=== PATIENT | male | born 1985 | race African-American/Black ===

== ENCOUNTER 2025-04-14 10:41 | Emergency (ER) | payer BC, SELFPAY ==
--- NOTE | 2025-04-14 10:45 | ECG_ITS ---
Test Date: 2025-04-14 10:29:22 Measurements Intervals [place] Rate: 107 P: 76 MA: 170 QRS: 62 QRSD: 102 T: 58 QT: 326 QTc: 436 Interpretive Statements SINUS TACHYCARDIA INCOMPLETE RIGHT BUNDLE BRANCH BLOCK BASELINE ARTIFACT- I, II, III, AVR, AVL, AVF, V1-V6 ABNORMAL ECG No previous ECG available for comparison Electronically Signed On 04-14-2025 11:54:53 [employer]AKER [employer]INT by Zachary Banuelos D.O.
--- NOTE | 2025-04-14 10:46 | ED_ITS ---
HPI - Chest Pain General Chief Complaint: Chest Pain Stated Complaint: heart beating fast/left arm feel numb Time Seen by Provider: 04/14/25 10:45 Source: patient and RN notes reviewed Mode of arrival: ambulatory Limitations: no limitations History of Present Illness HPI narrative: 40-year-old male patient presents to the [facility] complaining of chest pain, palpitations, and left arm pain that started approximately 30 minutes ago. Patient says approximately 2-1/2 hours ago he took 2 250 mg caffeine tablets and then went to work. Patient then started developing a dullness in his chest and left arm pain/numbness. Patient denies any difficulty breathing, shortness of breath, nausea, vomiting, jaw pain, blurry vision, headaches, fevers, eczema chills, upper respiratory symptoms, or any other symptoms. Patient reports a history of hypertension, does not take any medications. Patient is on nonsmoker. Patient denies any other significant past medical history. Staff called EMS prior to evaluation. Related Data Home Medications ?Medication ?Instructions ?Recorded ?Confirmed ?Last Taken ?Type albuterol sulfate 90 mcg/actuation inhalation 04/14/25 Unknown History aerosol inhaler ciclesonide 80 mcg/actuation inhalation 04/14/25 Unkn own History aerosol inhaler (Alvesco) Allergies Allergy/AdvReac Type Severity Reaction Status Date / Time NSAIDS (Non-Steroidal Allergy Severe Anaphylaxis Verified 04/14/25 11:12 Anti-Inflamma Review of Systems Review of Systems: CONSTITUTIONAL: Denies fever, body aches, chills, or sweats. EYES: Denies visual changes, blurry vision, double vision, redness, or discharge. ENT: Denies rhinorrhea, congestion, sore throat, or otalgia. CARDIOVASCULAR: Positive chest pain, palpitation and left arm numbness. Negative for dizziness, lightheadedness, or edema. RESPIRATORY: Denies cough or dyspnea. GASTROINTESTINAL: Denies abdominal pain, nausea, vomiting, or diarrhea. GENITOURINARY: Denies dysuria or hematuria. SKIN: Denies rash or itching. MUSCULOSKELETAL: Denies back pain, joint pain, or myalgia. NEUROLOGIC: Denies headache, loss of consciousness, seizures, numbness, or weakness. PSYCHIATRIC: Denies anxiety or depression. All other systems reviewed are negative, except as documented in HPI. PMFSH Comments At the time of my signature, I reviewed and agree with the nursing past medical, surgical, social, and family history. There is no relevant family history pertinent to the patient complaint. Exam Narrative: GENERAL: This is a well-nourished, well-developed adult, in no apparent distress. They are non ill-appearing, nontoxic appearing. Patient appears anxious. HEAD: normocephalic, atraumatic. EYES: Sclera clear/white. Conjunctiva normal. Vision is grossly intact. Extraocular movements intact EARS: External ears normal, Hearing grossly intact. NOSE: External nose normal THROAT: Mucous membranes moist, NECK: Neck supple, non-tender without lymphadenopathy, masses or thyromegaly. CARDIOVASCULAR: Tachycardic rate and rhythm without murmurs, gallops, or rubs. RESPIRATORY: Clear to auscultation. Breath sounds equal bilaterally. No wheezes, rales, or rhonchi. SKIN: warm, Dry, intact with no suspicious lesions or rash, good texture and turgor. NEURO: awake, alert, and oriented to person, place and time. There were no obvious focal neurologic abnormalities. EXTREMITIES: No joint tenderness, effusion, or edema noted. BACK: Nontender without deformity. Course Course Level of Care: Express Care Visit Vital Signs Vital signs: Vital Signs Oxygen Delivery Room Air 04/14/25 10:41 Temperature 97.9 F 04/14/25 10:53 Pulse Rate 110 H 04/14/25 10:53 Respiratory Rate 20 04/14/25 10:53 Blood Pressure 155/107 H 04/14/25 10:53 Pulse Oximetry 99 04/14/25 10:53 Oxygen Delivery Room Air 04/14/25 10:53 [facility] Narrative Medical decision making narrative: EMS arrived prior to evaluation because patient was having chest pain. Patient took to caffeine tablets dose to 250 mg apiece, totaling 5 her mg of caffeine. EKG is a sinus tachycardia nonspecific ST changes, no reciprocal changes, it is borderline. Patient's symptoms have improved while he has been here, her rate has decreased. Patient refused to go by ambulance to the hospital after speaking with paramedics. Given patient's symptoms, it is recommend the patient seek a higher level care and proceed immediately to the emergency department. Patient does not want to go to the ER after talking with him, patient's symptoms likely related to the caffeine use today, informed patient I cannot exclude a cardiac event. Patient does have a history of hypertension, but no identifiable other risk factors. Patient would benefit from further evaluation and management and monitoring of his symptoms. Patient informed he has had incomplete cardiac workup would benefit from blood work and further evaluation his symptoms. Patient adamantly does not want to go to the hospital. Patient has chosen to refuse further care. Risks of an incomplete evaluation and treatment were discussed with the patient, including but not limited to potential for , worsening of condition, or permanent disability. Patient verbalized understanding of these risks, but still desires to refuse further care. Patient recommended to follow up with PCP in the next possible interval. Specifically, patient was told they can return to the ED at any time to resume care. Differential Diagnosis Differential Diagnosis: Caffeine overdose, side effects from caffeine, ACS, stable angina, unstable angina ECG Data EKG #1: Attestation: I personally reviewed and interpreted this ECG as follows: ECG completion date: 04/14/25 ECG completion time: 10:29 Prior ECG tracings: not available for review tachycardia, sinus rhythm, non-specific ST changes, normal QRS, RBBB (Incomplete) and normal QT Critical Care Time Critical Care Time Critical Care Time: No Discharge Plan Discharge Clinical Impression: Chest pain Qualifiers: Chest pain type: unspecified Qualified Code(s): R07.9 - Chest pain, unspecified Adverse effect of caffeine Qualifiers: Encounter type: initial encounter Qualified Code(s): T43.615A - Adverse effect of caffeine, initial encounter Patient Disposition: Left Against Medical Advice Condition: Stable Patient Language: Micronesian Prescriptions: No Action albuterol sulfate 90 mcg/actuation HFA aerosol inhaler INHALATION Alvesco 80 mcg/actuation HFA aerosol inhaler INHALATION Follow-up/Referrals: UNKNOWN,DOCTOR [Primary Care Provider] Time of Disposition: 10:46
[2025-04-14 10:53] VITALS: BP 155/107; PULSE 110; RESP 20; TEMP 36.6; O2SAT 99
[2025-04-14 10:57] VITALS: BP 155/107
--- NOTE | 2025-04-14 12:52 | PC.NURSE ---
upon pt arrival in waiting area ems was called. ems arrived 1028. ems left 1032. pt declined ems transport.
== END 2025-04-14 10:57 | disposition left against medical advice (07) ==
LOC: EXPCOLL 10:47
DX: R07.9 Chest pain, unspecified (principal); T43.615A Adverse effect of caffeine, initial encounter
CPT/HCPCS: 93005; 99203; G0463

== ENCOUNTER 2025-04-14 14:57 | Emergency (ER) | payer BC, SELFPAY ==
[2025-04-14] VITALS (18 sets, daily range): BP systolic 128–178; BP diastolic 70–130; PULSE 84–112; RESP 12–26; TEMP 36.4; O2SAT 98–100
--- NOTE | ~2025-04-14 | XR_ITS ---
EXAMINATION: XR chest 2V, 04/14/2025 15:21 GENERAL DISTILLERY WORKER HISTORY: chest pain COMPARISON: No comparisons available. Technique: 2 views obtained. Findings: The lungs are clear, no effusion. No pneumothorax. Heart is normal size. Mediastinal and hilar contours are within normal limits. Bony thorax no acute abnormality. Impression: No acute cardiopulmonary abnormality. Reviewed, dictated and finalized at location P. RAL DISTILLERY WORKER Impression: No acute cardiopulmonary abnormality.
--- NOTE | 2025-04-14 15:11 | ECG_ITS ---
Test Date: 2025-04-14 15:03:36 Measurements Intervals [place] Rate: 95 P: 67 [place]: 173 QRS: 63 QRSD: 108 T: 52 QT: 361 QTc: 454 Interpretive Statements SINUS RHYTHM POSSIBLE LEFT ATRIAL ENLARGEMENT INCOMPLETE RIGHT BUNDLE BRANCH BLOCK BASELINE ARTIFACT- V2 BORDERLINE ECG Compared to ECG 04/14/2025 10:29:22 HEART RATE HAS DECREASED Electronically Signed On 04-14-2025 15:37:46 BUFFET ATTENDANT by Zachary Banuelos D.O.
[2025-04-14 15:21] LABS: Hematocrit 45.5 % (42.0-52.0); Hemoglobin 15.8 g/dL (14.0-18.0); Immature Granulocyte Percent A 0.2 % (0-0.5); Lymphocytes Absolute Auto 2.46 K/mm3 (0.9-3.2); Mean Corpuscular HGB Conc 34.7 g/dl (32-36); Mean Corpuscular Hemoglobin 29.6 pg (26-34); Mean Corpuscular Volume 85.4 fl (80-100); Nucleated Red Blood Cells Absolute Auto 0.000 K/mm3 (0.0-0.012); Nucleated Red Blood Cells Perc 0.0 % (0.0-0.2); Platelet Count Result 414 k/mm3 (150-375); Red Blood Count 5.33 M/mm3 (4.6-6.20); White Blood Count 11.3 K/mm3 (4.5-10.0)
[2025-04-14 15:33] LABS: INR 1.0; Partial Thromboplastin Time 31.2 Seconds (22.3-36.8); Prothrombin Time 13.4 Seconds (11.1-14.7)
[2025-04-14 15:38] LABS: Alanine Aminotransferase 37 U/L (6-50); Albumin Level 4.8 g/dL (3.5-5.1); Alkaline Phosphatase 85 U/L (38-126); Anion Gap 11 mmol/L (4-12); Aspartate Amino Transferase 35 U/L (17-59); Bilirubin,Total 0.9 mg/dL (0.2-1.3); Blood Urea Nitrogen 13 mg/dL (9-20); Calcium 10.3 mg/dL (8.4-10.2); Carbon Dioxide 25 mmol/L (22-30); Chloride 100 mmol/L (98-107); Estimated CRCL calculation 96 ml/min; Estimated Glomerular Filt Rate > 60; Glucose 137 mg/dL (65-110); Lipase 31 U/L (23-300); Potassium 3.3 mmol/L (3.4-5.0); Sodium 136 mmol/L (137-145); Total Protein 8.6 g/dL (6.3-8.2)
[2025-04-14 15:49] LABS: Troponin I < 0.012 ng/mL (0.000-0.034)
--- NOTE | 2025-04-14 16:33 | ED.CHESTPAIN ---
HPI - Chest Pain General Chief Complaint: Chest Pain <ARIANA Kincaid Last Filed: 04/14/25 18:41> Stated Complaint: 700mg caffeine this AM <ARIANA Kincaid Last Filed: 04/14/25 18:41> Time Seen by Provider: 04/14/25 15:07 <ARIANA Kincaid Last Filed: 04/14/25 18:41> Source: patient <ARIANA Kincaid Last Filed: 04/14/25 18:41> Mode of arrival: EMS <ARIANA Kincaid Last Filed: 04/14/25 18:41> Limitations: no limitations <ARIANA Kincaid Last Filed: 04/14/25 18:41> History of Present Illness HPI narrative: Patient is a 40-year-old male who presents the ED via EMS with report of chest pain. Patient reports he has intermittently been taking his friend's Adderall over the past few days. Last took this on Friday. He then took 750mg of caffeine pills/chews from the opinions.h this morning around 830am. He states he occasionally drinks energy drinks, but otherwise typically does not drink a lot of caffeine per day. Began feeling unwell around 10:30 a.m.. Reports feeling very jittery, tingling throughout his body, complains of chest pain/heaviness throughout his chest and entire body. Has called EMS multiple times today and finally decided to be evaluated. Reports feeling mildly short of breath. Reports history of hypertension, denies previous heart disease, hyperlipidemia, diabetes, smoking. <Italia Bobby PA-C - Last Filed: 04/14/25 18:41> Related Data Home Medications: Home Medications ?Medication ?Instructions ?Recorded ?Confirmed ?Last Taken ?Type albuterol sulfate 90 mcg/actuation inhalation 04/14/25 Unknown History aerosol inhaler ciclesonide 80 mcg/actuation inhalation 04/14/25 Unknown History aerosol inhaler (Alvesco) <ARIANA Kincaid Last Filed: 04/14/25 18:41> Allergies/Adverse Reactions: Allergies Allergy/AdvReac Type Severity Reaction Status Date / Time NSAIDS (Non-Steroidal Allergy Severe Anaphylaxis Verified 04/14/25 11:12 Anti-Inflamma <ARIANA Kincaid Last Filed: 04/14/25 18:41> Review of Systems Review of Systems: All systems reviewed & are unremarkable except as noted in HPI. <ARIANA Kincaid Last Filed: 04/14/25 18:41> All systems reviewed & are unremarkable except as noted in HPI and below <ARIANA Kincaid Last Filed: 04/14/25 18:41> Exam Narrative: GENERAL: Well appearing, well-nourished, non-toxic, in no acute distress. HEAD: Normocephalic, atraumatic. RESPIRATORY: Airway patent, respirations nonlabored. Clear to auscultation bilaterally, no rales, rhonchi, wheezing. No focal lung sounds. CARDIOVASCULAR: Borderline tachycardic with regular rhythm without murmurs, rubs, or gallops. MUSCULOSKELETAL: Moves all extremities. No gross deformities. SKIN: Warm, dry, normal color. NEURO: A&O X3. Speech clear. Cranial nerves II-XII grossly intact. Steady gait. No ataxic movements. PSYCHIATRIC: Mildly anxious. Normal interaction. <ARIANA Kincaid Last Filed: 04/14/25 18:41> Course Vital Signs Vital signs: Vital Signs Temperature 36.4 C 04/14/25 14:50 Pulse Rate 102 H 04/14/25 14:50 Respiratory Rate 20 04/14/25 14:50 Blood Pressure 174/106 H 04/14/25 14:50 Pulse Oximetry 100 04/14/25 14:50 Temperature 36.4 C 04/14/25 14:50 Pulse Rate 100 04/14/25 19:41 Respiratory Rate 16 04/14/25 19:41 Blood Pressure 150/94 H 04/14/25 19:41 Pulse Oximetry 100 04/14/25 19:41 Oxygen Delivery Room Air 04/14/25 15:12 <ARIANA Kincaid Last Filed: 04/14/25 18:41> Vital Signs Temperature 36.4 C 04/14/25 14:50 Pulse Rate 102 H 04/14/25 14:50 Respiratory Rate 20 04/14/25 14:50 Blood Pressure 174/106 H 04/14/25 14:50 Pulse Oximetry 100 04/14/25 14:50 Temperature 36.4 C 04/14/25 14:50 Pulse Rate 100 04/14/25 19:41 Respiratory Rate 16 04/14/25 19:41 Blood Pressure 150/94 H 04/14/25 19:41 Pulse Oximetry 100 04/14/25 19:41 Oxygen Delivery Room Air 04/14/25 15:12 <Tami Marlow APRN - Last Filed: 04/14/25 20:14> MDM MDM Narrative Medical decision making narrative: Patient presented to ED with chest pain, jitteriness. Reports excessive caffeine use (750mg) this morning. Patient mildly tachycardic upon arrival. In no acute distress upon my evaluation. Vital signs are otherwise stable. EKG with sinus rhythm. No concerning ST changes. Baseline troponin undetectable Chest x-ray clear D-dimer within normal range HEART score 1 based on RFs Basic laboratory studies otherwise fairly unremarkable. Potassium slightly low on CMP did 3.3. Replaced orally. Patient given fluids. 3 hour troponin obtained. Care signed out to Tami Marlow PAPER [employer]INTS RESTORER at shift change pending 3 hr trop results. Patient likely safe for d/c if this is flat. 1840- I assumed care of this patient from Italia Bobby PA-C. 04/14/25 6:41 pm TELECOMMUNICATIONS PROFESSIONAL - Tami Marlow <Italia Bobby PA-C - Last Filed: 04/14/25 18:41> Patient presented to ED with chest pain, jitteriness. Reports excessive caffeine use (750mg) this morning. Patient mildly tachycardic upon arrival. In no acute distress upon my evaluation. Vital signs are otherwise stable. EKG with sinus rhythm. No concerning ST changes. Baseline troponin undetectable Chest x-ray clear D-dimer within normal range HEART score 1 based on RFs Basic laboratory studies otherwise fairly unremarkable. Potassium slightly low on CMP did 3.3. Replaced orally. Patient given fluids. 3 hour troponin obtained. Care signed out to Tami Marlow P[employer]ER AND [employer]IN[employer] RESTORER at shift change pending 3 hr trop results. Patient likely safe for d/c if this is flat. 1840- I assumed care of this patient from Italia Bobby PA-C. 04/14/25 6:41 pm TELECOMMUNICATIONS PROFESSIONAL - Tami Marlow 2014-Patient's 2nd troponin was negative. He will be discharged with no new prescriptions. Patient verbalized understanding and is in agreement with plan. 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 <Tami Marlow APRN - Last Filed: 04/14/25 20:14> Differential Diagnosis Differential Diagnosis: ACS, PE, atypical chest pain, caffeine misuse/overdose, drug use <Italia Bobby PA-C - Last Filed: 04/14/25 18:41> Lab Data MDM Lab Attestation statement: I personally reviewed the patient's lab results. <Italia Bobby PA-C - Last Filed: 04/14/25 18:41> Result diagrams: 04/14/25 15:14 04/14/25 15:14 <Italia Bobby PA-C - Last Filed: 04/14/25 18:41> Labs: Lab Results 04/14/25 04/14/25 04/14/25 Range/Units 15:14 17:18 18:50 WBC 11.3 H (4.5-10.0) K/mm3 RBC 5.33 (4.6-6.20) M/mm3 Hgb 15.8 (14.0-18.0) g/dL Hct 45.5 (42.0-52.0) % MCV 85.4 (80-100) fl MCH 29.6 (26-34) pg MCHC 34.7 (32-36) g/dl RDW 11.3 L (11.5-14.5) % Plt Count 414 H (150-375) k/mm3 MPV 7.8 (7.4-10.4) fl Immature Gran % (Auto) 0.2 (0-0.5) % Neut % (Auto) 69.3 (45.5-73.1) % Lymph % (Auto) 21.7 (18.3-44.2) % [place]aton % (Auto) 8.3 (2.6-8.5) % Eos % (Auto) 0.1 (0-4.4) % Baso % (Auto) 0.4 (0.2-1.2) % Lymph # (Auto) 2.46 (0.9-3.2) K/mm3 Eaton # (Auto) 0.9 H (0.1-0.6) K/mm3 Eos # (Auto) 0.0 (0-0.3) K/mm3 Baso # (Auto) 0.0 (0.0-0.1) K/mm3 Abs Immat Gran (auto) 0.02 (0.00-0.031) K/mm3 Absolute Neuts (auto) 7.9 H (1.3-6.7) K/mm3 Absolute Nucleated RBC 0.000 (0.0-0.012) K/mm3 Nucleated RBC % 0.0 (0.0-0.2) % PT 13.4 (11.1-14.7) Seconds INR 1.0 APTT 31.2 (22.3-36.8) Seconds D-Dimer < 0.27 (<0.48) ug/mL Sodium 136 L (137-145) mmol/L Potassium 3.3 L (3.4-5.0) mmol/L Chloride 100 (98-107) mmol/L Carbon Dioxide 25 (22-30) mmol/L Anion Gap 11 (4-12) mmol/L BUN 13 (9-20) mg/dL Creatinine 0.95 (0.7-1.3) mg/dL Estim Creat Clear Calc 96 ml/min Estimated GFR > 60 (59 - ) Glucose 137 H (65-110) mg/dL Calcium 10.3 H (8.4-10.2) mg/dL Magnesium 2.0 (1.6-2.3) mg/dL Total Bilirubin 0.9 (0.2-1.3) mg/dL AST 35 (17-59) U/L ALT 37 (6-50) U/L Alkaline Phosphatase 85 (38-126) U/L Troponin I < 0.012 < 0.012 (0.000-0.034) ng/mL Total Protein 8.6 H (6.3-8.2) g/dL Albumin 4.8 (3.5-5.1) g/dL Lipase 31 (23-300) U/L Urine Color Yellow (Yellow) Urine Appearance Clear (Clear) Urine pH 8.5 (5.0-9.0) Ur Specific [place] 1.006 (1.001-1.035) Urine Protein Negative (Negative) mg/dL Urine Glucose (UA) Negative (Negative) mg/dL Urine Ketones Negative (Negative) mg/dL Ur Blood (Man) Negative (Negative) Urine Nitrate Negative (Negative) Urine Bilirubin Negative (Negative) Urine Urobilinogen 0.2 (<2.0) mg/dL Leukocyte Esterase Rfl Negative (Negative) SHAVON/UL Urine Opiates Screen Negative (Negative) Urine Methadone Screen Negative (Negative) Ur Barbiturates Screen Negative (Negative) Ur Phencyclidine Scrn Negative (Negative) Ur Amphetamine Screen Positive A (Negative) U Benzodiazepines Scrn Negative (Negative) Urine Cocaine Screen Negative (Negative) U Cannabinoids Screen Negative (Negative) <Italia Bobby PA-C - Last Filed: 04/14/25 18:41> Lab Results 04/14/25 04/14/25 04/14/25 Range/Units 15:14 17:18 18:50 WBC 11.3 H (4.5-10.0) K/mm3 RBC 5.33 (4.6-6.20) M/mm3 Hgb 15.8 (14.0-18.0) g/dL Hct 45.5 (42.0-52.0) % MCV 85.4 (80-100) fl MCH 29.6 (26-34) pg MCHC 34.7 (32-36) g/dl RDW 11.3 L (11.5-14.5) % Plt Count 414 H (150-375) k/mm3 MPV 7.8 (7.4-10.4) fl Immature Gran % (Auto) 0.2 (0-0.5) % Neut % (Auto) 69.3 (45.5-73.1) % Lymph % (Auto) 21.7 (18.3-44.2) % Eaton % (Auto) 8.3 (2.6-8.5) % Eos % (Auto) 0.1 (0-4.4) % Baso % (Auto) 0.4 (0.2-1.2) % Lymph # (Auto) 2.46 (0.9-3.2) K/mm3 [place]aton # (Auto) 0.9 H (0.1-0.6) K/mm3 Eos # (Auto) 0.0 (0-0.3) K/mm3 Baso # (Auto) 0.0 (0.0-0.1) K/mm3 Abs Immat Gran (auto) 0.02 (0.00-0.031) K/mm3 Absolute Neuts (auto) 7.9 H (1.3-6.7) K/mm3 Absolute Nucleated RBC 0.000 (0.0-0.012) K/mm3 Nucleated RBC % 0.0 (0.0-0.2) % PT 13.4 (11.1-14.7) Seconds INR 1.0 APTT 31.2 (22.3-36.8) Seconds D-Dimer < 0.27 (<0.48) ug/mL Sodium 136 L (137-145) mmol/L Potassium 3.3 L (3.4-5.0) mmol/L Chloride 100 (98-107) mmol/L Carbon Dioxide 25 (22-30) mmol/L Anion Gap 11 (4-12) mmol/L BUN 13 (9-20) mg/dL Creatinine 0.95 (0.7-1.3) mg/dL Estim Creat Clear Calc 96 ml/min Estimated GFR > 60 (59 - ) Glucose 137 H (65-110) mg/dL Calcium 10.3 H (8.4-10.2) mg/dL Magnesium 2.0 (1.6-2.3) mg/dL Total Bilirubin 0.9 (0.2-1.3) mg/dL AST 35 (17-59) U/L ALT 37 (6-50) U/L Alkaline Phosphatase 85 (38-126) U/L Troponin I < 0.012 < 0.012 (0.000-0.034) ng/mL Total Protein 8.6 H (6.3-8.2) g/dL Albumin 4.8 (3.5-5.1) g/dL Lipase 31 (23-300) U/L Urine Color Yellow (Yellow) Urine Appearance Clear (Clear) Urine pH 8.5 (5.0-9.0) Ur Specific [place] 1.006 (1.001-1.035) Urine Protein Negative (Negative) mg/dL Urine Glucose (UA) Negative (Negative) mg/dL Urine Ketones Negative (Negative) mg/dL Ur Blood (Man) Negative (Negative) Urine Nitrate Negative (Negative) Urine Bilirubin Negative (Negative) Urine Urobilinogen 0.2 (<2.0) mg/dL Leukocyte Esterase Rfl Negative (Negative) SHAVON/UL Urine Opiates Screen Negative (Negative) Urine Methadone Screen Negative (Negative) Ur Barbiturates Screen Negative (Negative) Ur Phencyclidine Scrn Negative (Negative) Ur Amphetamine Screen Positive A (Negative) U Benzodiazepines Scrn Negative (Negative) Urine Cocaine Screen Negative (Negative) U Cannabinoids Screen Negative (Negative) <Tami Marlow, LEI - Last Filed: 04/14/25 20:14> Imaging Data Attestation: I personally reviewed and interpreted this imaging study as follows: <Italia Bobby PA-C - Last Filed: 04/14/25 18:41> Radiologist's impression: ITS Impressions Chest X-Ray 04/14/25 15:32 Impression: No acute cardiopulmonary abnormality. <Italia Bobby PA-C - Last Filed: 04/14/25 18:41> ITS Impressions Chest X-Ray 04/14/25 15:32 Impression: No acute cardiopulmonary abnormality. <Tami Marlow, LEI - Last Filed: 04/14/25 20:14> ECG Data EKG #1: Attestation: I personally reviewed and interpreted this ECG as follows: <ARIANA Kincaid Last Filed: 04/14/25 18:41> ECG completion date: 04/14/25 <ARIANA Kincaid Last Filed: 04/14/25 18:41> ECG completion time: 15:03 <ARIANA Kincaid Last Filed: 04/14/25 18:41> normal rate (95), sinus rhythm, non-specific ST changes and RBBB (incomplete) <ARIANA Kincaid Last Filed: 04/14/25 18:41> Discharge Plan Discharge Clinical Impression: Atypical chest pain, Excessive caffeine intake <ARIANA Kincadi Last Filed: 04/14/25 18:41> Patient Disposition: Home <Italia Bobby PA-C - Last Filed: 04/14/25 18:41> Condition: Stable <ARIANA Kincaid Last Filed: 04/14/25 18:41> Instructions: Antibiotic Form, Chest Pain (ED), Caffeine Use (ED) <ARIANA Kincaid Last Filed: 04/14/25 18:41> Additional Instructions: Your workup here was reassuring against a cardiac cause of your chest pain. Avoid further excessive caffeine use or Adderall use. Recommend limiting caffeine intake to less than 200mg per day. Follow-up with your primary care doctor for further evaluation. Return to the ED if you experience worsening or severe pain, difficulty breathing, unable to keep down food or drink, pain or swelling in your legs, or any other symptoms of concern. <Italia Bobby PA-C - Last Filed: 04/14/25 18:41> Patient Language: Mauritanian <ARIANA Kincaid Last Filed: 04/14/25 18:41> Prescriptions: No Action albuterol sulfate 90 mcg/actuation HFA aerosol inhaler INHALATION Alvesco 80 mcg/actuation HFA aerosol inhaler INHALATION <ARIANA Kincaid Last Filed: 04/14/25 18:41> Follow-up/Referrals: Salas Macedo MD [Physician, Family Practice] UNKNOWN,DOCTOR [Primary Care Provider] <Italia Bobby PA-C - Last Filed: 04/14/25 18:41> Time of Disposition: 20:14 <ARIANA Kincaid Last Filed: 04/14/25 18:41> 20:14 <Tami Marlow APRN - Last Filed: 04/14/25 20:14> Quality HEART score for chest pain patients History: slightly suspicious <ARIANA Kincaid Last Filed: 04/14/25 18:41> ECG: normal <Italia Bobby PA-C - Last Filed: 04/14/25 18:41> Age: < or = to 45 years <Italia Bobby PA-C - Last Filed: 04/14/25 18:41> Risk factors: 1 or 2 risk factors <Italia Bobby PA-C - Last Filed: 04/14/25 18:41> Troponin: < or = to 1x normal limit <Italia Bobby PA-C - Last Filed: 04/14/25 18:41> Heart score: 1 <Italia Bobby PA-C - Last Filed: 04/14/25 18:41> 1 <Tami Marlow APRN - Last Filed: 04/14/25 20:14>
[2025-04-14 17:05] LABS: Magnesium 2.0 mg/dL (1.6-2.3)
[2025-04-14] MEDS: POTASSIUM CHLORIDE 20 MEQ ER TABLET 40 MEQ PO (17:08)
[2025-04-14 17:28] LABS: Add Urine Microscopic? NO; Appearance Urine Clear (Clear); Glucose Urine UA Negative (Negative); Leukocyte Esterase Ur Negative LEU/UL (Negative); Nitrate Urine Negative (Negative); Specific Grav Ur 1.006 (1.001-1.035)
[2025-04-14 17:53] LABS: Cannabinoid Screen Urine Negative (Negative)
[2025-04-14] MEDS: SODIUM CHLORIDE 0.9% IV 1,000 ML 999 ML IV CONT (17:55)
--- NOTE | 2025-04-14 18:42 | ECG_ITS ---
Test Date: 2025-04-14 18:50:58 Measurements Intervals [place] Rate: 93 P: 68 [place]: 165 QRS: 56 QRSD: 113 T: 49 QT: 350 QTc: 436 Interpretive Statements SINUS RHYTHM POSSIBLE LEFT ATRIAL ENLARGEMENT INCOMPLETE RIGHT BUNDLE BRANCH BLOCK BORDERLINE ECG Compared to ECG 04/14/2025 15:03:36 No significant changes Electronically Signed On 04-14-2025 19:46:18 GUEST RELATIONS MANAGER by Zachary Banuelos D.O.
--- NOTE | 2025-04-14 19:41 | PC.NURSE ---
Pt. denies any current CP, feeling of palpitations or SOB. Pt. states he is feel back to his normal. Speech is clear. Pt. is acting appropriate.
[2025-04-14 19:44] LABS: Troponin I < 0.012 ng/mL (0.000-0.034)
== END 2025-04-14 20:53 | disposition home or self-care (01) ==
PROVIDERS: Emergency Provider Physician Assistant
DX: T43.611A Poisoning by caffeine, accidental (unintentional), initial encounter (principal); R07.89 Other chest pain; I10 Essential (primary) hypertension; I45.10 Unspecified right bundle-branch block; R94.31 Abnormal electrocardiogram [ECG] [EKG]
CPT/HCPCS: 36415; 71046; 80053; 80307; 81003; 83690; 83735; 84484; 85025; 85380; 85610; 85730; 93005; 96360; 99284; A9270; J7030